=== PATIENT | female | born 1970 | race Two or more races ===

== ENCOUNTER 2018-12-21 11:37 | Emergency (ER) | payer OTHER ==
[~2018-12-21] VITALS: Ht 157.5 cm; Wt 63.0 kg
[2018-12-21] MEDS ORDERED: TEMAZEPAM15 MG PO (12:07)
[2018-12-21] MEDS ORDERED: NOLVADEX10 MG PO (12:07)
[2018-12-21] MEDS ORDERED: EFFEXOR XR37.5 MG PO (12:08)
== END 2018-12-21 14:15 | disposition home or self-care (01) ==
LOC: ER 11:37
DX: L03.116 Cellulitis of left lower limb (principal)

== ENCOUNTER 2018-12-23 11:20 | Emergency (ER) | payer OTHER ==
[~2018-12-23] VITALS: Ht 157.5 cm; Wt 63.0 kg
[~2018-12-23 11:20] MED LIST: EFFEXOR XR37.5 MG PO; NOLVADEX10 MG PO; TEMAZEPAM15 MG PO
[2018-12-23] MEDS ORDERED: CLEOCIN HCL150 MG PO (11:51)
== END 2018-12-23 15:26 | disposition home or self-care (01) ==
LOC: ER 11:20
DX: B83.0 Visceral larva migrans (principal)

== ENCOUNTER 2024-01-22 12:55 | Emergency (ER) | payer OTHER ==
[~2024-01-22] VITALS: Ht 157.5 cm; Wt 61.2 kg
[~2024-01-22 12:55] MED LIST changes: +CLEOCIN HCL150 MG PO
[2024-01-22] MEDS ORDERED: 0.9 % SODIUM CHLORIDE 500 ML IV STA (14:54)
[2024-01-22 15:27] LABS: HEMATOCRIT 40.6 % (36.0-45.00); HEMOGLOBIN 13.9 g/dL (12.0-15.00); MEAN CELL VOLUME 95.1 fL (80.00-100.00); MEAN CORPUSCULAR HEMOGLOBIN 32.5 pg (27.00-32.0); MEAN CORPUSCULAR HGB CONC 34.2 g/dl (32.0-36.0); PLATELET COUNT 207 K/uL (150-450); RED BLOOD COUNT 4.27 M/uL (4.00-6.00); RED CELL DISTRIBUTION WIDTH 13.6 % (11.5-14.5)
[2024-01-22 15:31] LABS: PH,URINE 5.5 (5.0-8.0); URINE APPEARANCE Clear; URINE BACTERIA 340.1 uL (0.0-1933); URINE BILIRRUBIN Negative (NEGATIVE); URINE BLOOD Negative; URINE COLOR Dark Yellow; URINE GLUCOSE Negative (NEGATIVE); URINE KETONE Trace (NEGATIVE); URINE LEUKOCYTE Trace; URINE NITRATE Negative; URINE PROTEIN Trace (NEGATIVE); URINE RBC 4.1 uL (0.0-20.8); URINE UROBILINOGEN 0.2 E.U./dl; URINE WBC 25.3 uL (0.0-23.2)
[2024-01-22 15:38] LABS: URINE CAST 0.15 uL (0.0-1.40)
[2024-01-22 15:47] LABS: CALCIUM 9.6 mg/dL (8.5-10.1); CREATININE SERUM 0.79 mg/dL (0.55-1.02); GFR 76.13; POTASSIUM 4.19 mEq/L (3.5-5.1)
== END 2024-01-22 16:19 | disposition home or self-care (01) ==
LOC: ER 12:56
PROVIDERS: General Practice
DX: R53.1 Weakness (principal); Z90.12 Acquired absence of left breast and nipple; Z88.0 Allergy status to penicillin